=== PATIENT | female | born 1935 ===

== ENCOUNTER 2024-01-22 12:47 | Outpatient (REF) | payer BC, SELFPAY ==
--- NOTE | 2024-01-22 13:25 | MHC.AU.AEV ---
Adult Audiological Evaluation Date of Visit: 01/22/24 Charity visited for evaluation, reporting longstanding hearing loss. She states she had a hearing test about 6-7 years ago in [place], did not pursue amplification at that time. She states she had a surgery on her right ear at 10 years old, unsure of the name of the procedure but believes a bone was removed. Denies tinnitus, otalgia, vertigo. Otoscopy showed completely occluding wax right ear, nonoccluding left ear. Recommended removal by MD due to surgical history of right ear. Charity can call to reschedule her hearing test once removed. Signature: Provider: Mamadou Palm, CCC-A
== END 2024-01-22 12:48 | disposition home or self-care (01) ==
LOC: HO.SH 12:47
PROVIDERS: PCP Internal Medicine; Visit Provider Physician Assistant
DX: Z13.89 Encounter for screening for other disorder (principal)

== ENCOUNTER 2024-03-29 08:58 | Outpatient (REF) | payer BC, MEDICAID, SELFPAY | END 2024-03-29 08:59 | disposition home or self-care (01) | LOC: HO.SH 08:58 | PROVIDERS: Visit Provider Physician Assistant | DX: Z01.118 Encounter for examination of ears and hearing with other abnormal findings (principal); H90.3 Sensorineural hearing loss, bilateral | CPT/HCPCS: 92557; 92567 ==